=== PATIENT | male | born 1945 | race Caucasian/White ===

== ENCOUNTER → 2016-10-16 | Outpatient (CLI) | payer MEDICARE ==
[~2016-10-16] MED LIST: ASPI-621 PO; ATOR10TA9 PO; CARV6.252 PO; CLOP75TA PO; ISOS30TA8 PO; LOSA50TA2 PO; [UNRECOGNIZED DRUG - OTHER] EACHEYE
== END | disposition home or self-care (01) ==
LOC: CFH 14:50
PROVIDERS: ATTEND Internal Medicine Cardiovascular Disease
DX: I08.3 Combined rheumatic disorders of mitral, aortic and tricuspid valves (principal); I10 Essential (primary) hypertension; I42.0 Dilated cardiomyopathy
CPT/HCPCS: 93306

== ENCOUNTER 2017-02-06 11:56 | Inpatient (IN) | payer MEDICARE ==
[~2017-02-06] VITALS: Ht 180.3 cm; Wt 77.7 kg
[~2017-02-06 11:56] MED LIST changes: +ALBU18HF INH; +ATOR40TA78 PO; +CARV12.543 PO; +FURO20TA3 PO; +LATA2.5D3 EACHEYE; +SPIR25TA PO
[2017-02-06] MEDS ORDERED: SODIUM CHLORIDE FLUSH 10ML SYR IVF ONE (12:30)
[2017-02-06] MEDS ORDERED: TRIA1CAP PO (12:43)
[2017-02-06] MEDS ORDERED: NITROGLYCERIN SINGLE TAB 0.4 MG SL ONE (12:54)
[2017-02-06] MEDS ORDERED: SODIUM CHLORIDE 0.9% 1,000ML IVBOLUS ONE (13:00)
[2017-02-06] MEDS: NITROGLYCERIN SINGLE TAB 0.4 MG SL PRN ×2 (13:04→13:26)
[2017-02-06 13:05] LABS: HEMATOCRIT 49.5 % (39.2-51.8); HEMOGLOBIN 16.3 g/dL (13.7-18.0); WHITE BLOOD COUNT 7.9 x10^3/uL (3.4-10)
[2017-02-06 13:20] LABS: BLOOD UREA NITROGEN 13 mg/dL (7-18)
[2017-02-06 13:26] LABS: ASPARTATE AMINO TRANSFERASE 33 U/L (15-37)
[2017-02-06 13:28] LABS: IS PT STATUS REG ER OR PRE ER? YES
[2017-02-06] MEDS ORDERED: FUROSEMIDE 20 MG/2 ML IV ONE (13:30)
[2017-02-06] MEDS ORDERED: FUROSEMIDE 20 MG/2 ML ONE (13:37)
[2017-02-06] MEDS ORDERED: ENOXAPARIN 60 MG/0.6 ML SQ ONE (14:00)
[2017-02-06] MEDS ORDERED: morphine SULFATE 10 MG/ML, 1ML IVPush PRN (15:00)
[2017-02-06] MEDS ORDERED: LABETALOL 5MG/ML, 20ML IVPush PRN (15:00)
[2017-02-06] MEDS ORDERED: HYDROcodone/APAP 5/325 TABLET PO PRN (15:00)
[2017-02-06] MEDS ORDERED: GUAIFENESIN/DM 200-20MG, 10ML UDC PO PRN (15:00)
[2017-02-06] MEDS ORDERED: ONDANSETRON 2MG/ML, 2ML IVPush PRN (15:00)
[2017-02-06] MEDS ORDERED: ONDANSETRON ODT 4 MG PO PRN (15:00)
[2017-02-06 15:23] LABS: IS PT STATUS REG ER OR PRE ER? YES
[2017-02-06 20:20] VITALS: BP 159/99
[2017-02-06] MEDS ORDERED: GUAI118L3 PO (20:37)
[2017-02-06 21:25] LABS: IS PT STATUS REG ER OR PRE ER? NO
[2017-02-06] MEDS: CARVEDILOL 12.5 MG TABLET PO SCH (21:52)
[2017-02-06] MEDS: FUROSEMIDE 20 MG/2 ML IV SCH (21:53)
[2017-02-06] MEDS: ENOXAPARIN 40 MG/0.4 ML SQ SCH (21:53)
[2017-02-06] MEDS ORDERED: OMNIPAQUE 350 MG/ML, 100ML BOTTLE ONE (22:24)
[2017-02-06] MEDS: ATORVASTATIN 40 MG TABLET PO SCH (23:05)
[2017-02-06] MEDS: LATANOPROST OPHTH 0.005%, 2.5ML EACHEYE SCH (23:08)
[2017-02-07 00:56] VITALS: BP 125/73
[2017-02-07 06:23] LABS: HEMOGLOBIN 15.7 g/dL (13.7-18.0); WHITE BLOOD COUNT 8.5 x10^3/uL (3.4-10)
[2017-02-07] MEDS: ASPIRIN 81 MG TABLET EC PO SCH (06:35)
[2017-02-07 06:55] LABS: ASPARTATE AMINO TRANSFERASE 27 U/L (15-37); BLOOD UREA NITROGEN 20 mg/dL (7-18)
[2017-02-07 08:11] VITALS: BP 142/85
[2017-02-07] MEDS ORDERED: FUROSEMIDE 20 MG/2 ML IV SCH (09:00)
[2017-02-07] MEDS: CLOPIDOGREL 75 MG TABLET PO SCH (09:02)
[2017-02-07] MEDS: SENNA/DOCUSATE TABLET PO SCH (09:02)
[2017-02-07] MEDS: ISOSORBIDE MONONITRATE ER 30 MG TABLET PO SCH (09:02)
[2017-02-07] MEDS: LOSARTAN 50MG TABLET PO SCH (09:02)
[2017-02-07] MEDS: SPIRONOLACTONE 25 MG TABLET PO SCH (09:02)
[2017-02-07] MEDS: CARVEDILOL 12.5 MG TABLET PO SCH ×2 (09:03→20:02)
[2017-02-07] MEDS: FUROSEMIDE 20 MG/2 ML IV SCH ×2 (09:03→20:03)
[2017-02-07] MEDS ORDERED: REGADENOSON 0.4 MG/5 ML SYRINGE ONE (10:12)
[2017-02-07 11:31] LABS: IS PT STATUS REG ER OR PRE ER? NO
[2017-02-07 14:30] VITALS: BP 199/78
[2017-02-07 18:21] VITALS: BP 142/69
[2017-02-07 20:00] VITALS: BP 126/63
[2017-02-07] MEDS: ENOXAPARIN 40 MG/0.4 ML SQ SCH (20:02)
[2017-02-07] MEDS: ATORVASTATIN 40 MG TABLET PO SCH (20:02)
[2017-02-07] MEDS: LATANOPROST OPHTH 0.005%, 2.5ML EACHEYE SCH (20:03)
[2017-02-08 01:45] VITALS: BP 118/56
[2017-02-08 05:19] LABS: HEMATOCRIT 49.7 % (39.2-51.8); HEMOGLOBIN 16.2 g/dL (13.7-18.0); WHITE BLOOD COUNT 9.3 x10^3/uL (3.4-10)
[2017-02-08 05:29] LABS: BLOOD UREA NITROGEN 26 mg/dL (7-18)
[2017-02-08 05:32] LABS: ASPARTATE AMINO TRANSFERASE 19 U/L (15-37)
[2017-02-08] MEDS: ASPIRIN 81 MG TABLET EC PO SCH (06:01)
[2017-02-08 07:02] VITALS: BP 144/86
[2017-02-08] MEDS: LOSARTAN 50MG TABLET PO SCH (08:26)
[2017-02-08] MEDS: CLOPIDOGREL 75 MG TABLET PO SCH (08:26)
[2017-02-08] MEDS: ISOSORBIDE MONONITRATE ER 30 MG TABLET PO SCH (08:26)
[2017-02-08] MEDS: SPIRONOLACTONE 25 MG TABLET PO SCH (08:26)
[2017-02-08] MEDS: FUROSEMIDE 20 MG/2 ML IV SCH (08:27)
[2017-02-08] MEDS: SENNA/DOCUSATE TABLET PO SCH (08:27)
[2017-02-08] MEDS: CARVEDILOL 12.5 MG TABLET PO SCH (08:27)
== END 2017-02-08 11:55 | disposition home or self-care (01) | DRG 302 ==
LOC: ED 13:32 → INTOOBSV 13:34 → EDIP 13:34 → OBSVTOIN 13:34 → ED 13:53 → 5SO 20:20 → DCLOUNGE 02-08 11:46
PROVIDERS: ADMIT Hospitalist; ATTEND Hospitalist
DX: I25.110 Atherosclerotic heart disease of native coronary artery with unstable angina pectoris (principal); I50.43 Acute on chronic combined systolic (congestive) and diastolic (congestive) heart failure; I11.0 Hypertensive heart disease with heart failure; I35.0 Nonrheumatic aortic (valve) stenosis; I25.5 Ischemic cardiomyopathy; E78.5 Hyperlipidemia, unspecified; I25.2 Old myocardial infarction; Z79.82 Long term (current) use of aspirin; Z91.19 Patient's noncompliance with other medical treatment and regimen; Z95.5 Presence of coronary angioplasty implant and graft; Z72.89 Other problems related to lifestyle; Z98.49 Cataract extraction status, unspecified eye; Z79.02 Long term (current) use of antithrombotics/antiplatelets; Z79.899 Other long term (current) drug therapy
CPT/HCPCS: 36415; 71010; 71275; 78452; 80053; 80061; 83690; 83735; 83880; 84439; 84484; 85025; 85379; 85610; 93005; 93017; 93306; 96374; J1650; J2785; Q9967; A9502; C9898; J1940; J7030

== ENCOUNTER 2017-05-16 09:28 | Inpatient (IN) | payer MEDICARE ==
[~2017-05-16] VITALS: Ht 180.3 cm; Wt 72.7 kg
[~2017-05-16 09:28] MED LIST changes: +GUAI118L3 PO; +TRIA1CAP PO
[2017-05-16] MEDS ORDERED: FLUT12HF2 INH (10:54)
[2017-05-16] MEDS ORDERED: SODIUM CHLORIDE FLUSH 10ML SYR IVF ONE (11:30)
[2017-05-16 11:53] LABS: BASOPHILS # (AUTO) 0.03 x10^3/uL (0-0.1); BASOPHILS % (AUTO) 0 % (0-1); EOSINOPHILS # (AUTO) 0.13 x10^3/uL (0-0.4); EOSINOPHILS % (AUTO) 2 % (1-7); LYMPHOCYTES # (AUTO) 0.77 x10^3/uL (1-3.4); LYMPHOCYTES % (AUTO) 12 % (22-44); MD NO; MEAN CORPUSCULAR HEMOGLOBIN 28.9 pg (27.5-34.5); MEAN CORPUSCULAR HGB CONC 32.4 g/dL (33.2-36.2); MEAN CORPUSCULAR VOLUME 89.2 fL (81-97); MEAN PLATELET VOLUME 9.3 fL (7.4-10.4); MONOCYTES # (AUTO) 0.52 x10^3/uL (0.2-0.8); MONOCYTES % (AUTO) 8 % (2-9); NEUTROPHILS # (AUTO) 5.05 x10^3/uL (1.8-6.8); NEUTROPHILS % (AUTO) 78 % (42-75); PLATELET COUNT 163 x10^3/uL (130-400); RED BLOOD COUNT 5.88 x10^6/uL (4.38-5.82); RED CELL DISTRIBUTION WIDTH 15.8 % (9.4-14.8)
[2017-05-16 11:56] LABS: INTERNATIONAL NORMALIZED RATIO 1.11 (0.93-1.1); PROTHROMBIN TIME 11.4 Seconds (9.6-11.5)
[2017-05-16 12:01] LABS: ALANINE AMINOTRANSFERASE 19 U/L (12-78); ALBUMIN 3.3 g/dL (3.4-5.0); ANION GAP 8 mmol/L (5-15); CALCIUM 8.6 mg/dL (8.5-10.1); CHLORIDE 106 mmol/L (98-107)
[2017-05-16 12:06] LABS: ALKALINE PHOSPHATASE 93 U/L (45-117); CREATININE 1.09 mg/dL (0.7-1.3); TOTAL PROTEIN 7.3 g/dL (6.4-8.2); TROPONIN I 0.066 ng/mL (0.000-0.045)
[2017-05-16 12:18] LABS: BILIRUBIN,TOTAL 1.3 mg/dL (0.2-1.0)
[2017-05-16] MEDS ORDERED: SODIUM CHLORIDE FLUSH 10ML SYR IVF PRN (12:30)
[2017-05-16] MEDS ORDERED: NITROGLYCERIN 0.4 MG/SPRAY SL PRN (13:30)
[2017-05-16] MEDS ORDERED: morphine SULFATE 10 MG/ML, 1ML IV PRN (13:30)
[2017-05-16] MEDS ORDERED: ENOXAPARIN 40 MG/0.4 ML SQ SCH (13:30)
[2017-05-16] MEDS ORDERED: NITROGLYCERIN 0.4 MG BOTTLE (25 TABS) SL PRN (13:30)
[2017-05-16] MEDS ORDERED: ALBUTEROL HFA 90 MCG/SPRAY INH PRN ×2 (13:30→14:06)
[2017-05-16 13:49] LABS: THYROID STIMULATING HORMONE 1.99 mIU/L (0.358-3.740)
[2017-05-16 14:32] VITALS: BP 153/83
[2017-05-16] MEDS: FUROSEMIDE 20 MG/2 ML IV SCH ×2 (17:07→23:18)
[2017-05-16] MEDS: GUAIFENESIN 200 MG TABLET PO SCH ×2 (17:07→23:18)
[2017-05-16 20:06] VITALS: BP_SYST 132
[2017-05-16 21:32] LABS: TROPONIN I 0.082 ng/mL (0.000-0.045)
[2017-05-16] MEDS: AMOXICILLIN/CLAV 875-125MG TABLET PO SCH (23:17)
[2017-05-16] MEDS: ATORVASTATIN 40 MG TABLET PO SCH (23:18)
[2017-05-16] MEDS: FLUTICASONE/VILANTEROL 100-25MCG/INH INH SCH (23:18)
[2017-05-16] MEDS: CARVEDILOL 12.5 MG TABLET PO SCH (23:18)
[2017-05-16] MEDS: FLUTICASONE NASAL SPRAY 16GM NAS SCH (23:19)
[2017-05-16] MEDS: SODIUM CHLORIDE FLUSH 10ML SYR IVF SCH (23:19)
[2017-05-16] MEDS: SODIUM CHLORIDE NASAL SPRAY 45ML BOTTLE NAS SCH (23:19)
[2017-05-16] MEDS: LATANOPROST OPHTH 0.005%, 2.5ML EACHEYE SCH (23:19)
[2017-05-17 01:28] VITALS: BP 116/67
[2017-05-17 05:20] LABS: BASOPHILS # (AUTO) 0.04 x10^3/uL (0-0.1); BASOPHILS % (AUTO) 1 % (0-1); EOSINOPHILS # (AUTO) 0.19 x10^3/uL (0-0.4); EOSINOPHILS % (AUTO) 3 % (1-7); LYMPHOCYTES # (AUTO) 1.18 x10^3/uL (1-3.4); LYMPHOCYTES % (AUTO) 15 % (22-44); MD NO; MEAN CORPUSCULAR HGB CONC 32.2 g/dL (33.2-36.2); MEAN CORPUSCULAR VOLUME 90.2 fL (81-97); MEAN PLATELET VOLUME 9.1 fL (7.4-10.4); MONOCYTES # (AUTO) 0.88 x10^3/uL (0.2-0.8); MONOCYTES % (AUTO) 11 % (2-9); NEUTROPHILS # (AUTO) 5.39 x10^3/uL (1.8-6.8); NEUTROPHILS % (AUTO) 70 % (42-75); PLATELET COUNT 150 x10^3/uL (130-400); RED BLOOD COUNT 5.83 x10^6/uL (4.38-5.82); RED CELL DISTRIBUTION WIDTH 15.9 % (9.4-14.8)
[2017-05-17 05:33] LABS: ANION GAP 6 mmol/L (5-15); CALCIUM 8.9 mg/dL (8.5-10.1); CHLORIDE 106 mmol/L (98-107)
[2017-05-17 05:37] LABS: CREATININE 1.22 mg/dL (0.7-1.3); TROPONIN I 0.125 ng/mL (0.000-0.045)
[2017-05-17 05:38] LABS: CHOL/HDL RATIO 3.5; CHOLESTEROL, TOTAL 153 mg/dL (140-239); HDL CHOL % 29 % (26-37); HDL CHOLESTEROL (DIRECT) 44 mg/dL (40-60); LDL CHOLESTEROL,CALCULATED 88 mg/dL (54-169); TRIGLYCERIDES 104 mg/dL (50-200); VLDL CHOLESTEROL 21 mg/dL (0-25)
[2017-05-17] MEDS: ASPIRIN 325 MG TABLET EC PO SCH (06:19)
[2017-05-17] MEDS: GUAIFENESIN 200 MG TABLET PO SCH ×4 (06:19→21:18)
[2017-05-17] MEDS ORDERED: ONDANSETRON 2MG/ML, 2ML ONE (08:55)
[2017-05-17] MEDS: FLUTICASONE/VILANTEROL 100-25MCG/INH INH SCH (08:57)
[2017-05-17] MEDS: FLUTICASONE NASAL SPRAY 16GM NAS SCH ×2 (08:57→21:19)
[2017-05-17] MEDS: FUROSEMIDE 20 MG/2 ML IV SCH ×2 (08:57→16:54)
[2017-05-17] MEDS: ISOSORBIDE MONONITRATE ER 30 MG TABLET PO SCH (08:58)
[2017-05-17] MEDS: SODIUM CHLORIDE NASAL SPRAY 45ML BOTTLE NAS SCH ×2 (08:58→21:19)
[2017-05-17] MEDS: SPIRONOLACTONE 25 MG TABLET PO SCH (08:58)
[2017-05-17] MEDS: AMOXICILLIN/CLAV 875-125MG TABLET PO SCH ×2 (08:58→21:18)
[2017-05-17] MEDS: SODIUM CHLORIDE FLUSH 10ML SYR IVF SCH ×2 (08:58→21:23)
[2017-05-17] MEDS: CARVEDILOL 12.5 MG TABLET PO SCH ×2 (08:58→21:19)
[2017-05-17] MEDS: CLOPIDOGREL 75 MG TABLET PO SCH (08:58)
[2017-05-17] MEDS ORDERED: ONDANSETRON 2MG/ML, 2ML IVPush ONE (09:00)
[2017-05-17 09:34] VITALS: BP 138/79
[2017-05-17 14:49] LABS: INTERNATIONAL NORMALIZED RATIO 1.13 (0.93-1.1); PROTHROMBIN TIME 11.6 Seconds (9.6-11.5)
[2017-05-17 16:13] VITALS: BP 101/58
[2017-05-17] MEDS ORDERED: WARFARIN 5 MG TABLET PO-COUM ONE ×2 (16:49→18:00)
[2017-05-17 18:39] VITALS: BP 114/69
[2017-05-17] MEDS: ATORVASTATIN 40 MG TABLET PO SCH (21:18)
[2017-05-17] MEDS: LATANOPROST OPHTH 0.005%, 2.5ML EACHEYE SCH (21:19)
[2017-05-17 21:20] VITALS: BP 107/65
[2017-05-17] MEDS ORDERED: ALBUTEROL SULFATE 2.5 MG/3 ML NPPB PRN (22:00)
[2017-05-18 01:25] VITALS: BP 118/70
[2017-05-18 05:29] LABS: INTERNATIONAL NORMALIZED RATIO 1.12 (0.93-1.1); PROTHROMBIN TIME 11.5 Seconds (9.6-11.5)
[2017-05-18 05:31] LABS: BASOPHILS # (AUTO) 0.03 x10^3/uL (0-0.1); BASOPHILS % (AUTO) 0 % (0-1); EOSINOPHILS # (AUTO) 0.34 x10^3/uL (0-0.4); EOSINOPHILS % (AUTO) 4 % (1-7); LYMPHOCYTES % (AUTO) 11 % (22-44); MD NO; MEAN CORPUSCULAR HEMOGLOBIN 29.5 pg (27.5-34.5); MEAN CORPUSCULAR HGB CONC 32.7 g/dL (33.2-36.2); MEAN CORPUSCULAR VOLUME 90.2 fL (81-97); MEAN PLATELET VOLUME 9.6 fL (7.4-10.4); MONOCYTES % (AUTO) 11 % (2-9); NEUTROPHILS # (AUTO) 6.84 x10^3/uL (1.8-6.8); NEUTROPHILS % (AUTO) 74 % (42-75); PLATELET COUNT 151 x10^3/uL (130-400); RED BLOOD COUNT 5.41 x10^6/uL (4.38-5.82); RED CELL DISTRIBUTION WIDTH 15.7 % (9.4-14.8)
[2017-05-18 05:43] LABS: ANION GAP 8 mmol/L (5-15); CHLORIDE 102 mmol/L (98-107)
[2017-05-18 05:46] LABS: CALCIUM 8.4 mg/dL (8.5-10.1); CREATININE 1.55 mg/dL (0.7-1.3)
[2017-05-18] MEDS: GUAIFENESIN 200 MG TABLET PO SCH ×4 (06:27→19:58)
[2017-05-18] MEDS: ASPIRIN 325 MG TABLET EC PO SCH (06:30)
[2017-05-18 06:35] VITALS: BP 125/74
[2017-05-18] MEDS: SODIUM CHLORIDE NASAL SPRAY 45ML BOTTLE NAS SCH ×2 (08:46→19:59)
[2017-05-18] MEDS: FLUTICASONE NASAL SPRAY 16GM NAS SCH ×2 (08:46→19:59)
[2017-05-18] MEDS: AMOXICILLIN/CLAV 875-125MG TABLET PO SCH ×2 (08:47→19:59)
[2017-05-18] MEDS: SODIUM CHLORIDE FLUSH 10ML SYR IVF SCH ×2 (08:47→19:59)
[2017-05-18] MEDS: FLUTICASONE/VILANTEROL 100-25MCG/INH INH SCH (08:47)
[2017-05-18] MEDS: ISOSORBIDE MONONITRATE ER 30 MG TABLET PO SCH (08:47)
[2017-05-18] MEDS: FUROSEMIDE 20 MG/2 ML IV SCH (08:47)
[2017-05-18] MEDS: SPIRONOLACTONE 25 MG TABLET PO SCH (08:47)
[2017-05-18] MEDS: CARVEDILOL 12.5 MG TABLET PO SCH ×2 (08:47→19:58)
[2017-05-18] MEDS: CLOPIDOGREL 75 MG TABLET PO SCH (08:47)
[2017-05-18 11:25] VITALS: BP 108/67
[2017-05-18] MEDS ORDERED: WARFARIN 5 MG TABLET PO-COUM SCH (18:00)
[2017-05-18 19:26] VITALS: BP 122/79
[2017-05-18] MEDS: LATANOPROST OPHTH 0.005%, 2.5ML EACHEYE SCH (19:58)
[2017-05-18] MEDS: ATORVASTATIN 40 MG TABLET PO SCH (19:59)
[2017-05-19 02:37] VITALS: BP 136/78
[2017-05-19 04:52] LABS: INTERNATIONAL NORMALIZED RATIO 1.17 (0.93-1.1)
[2017-05-19] MEDS: GUAIFENESIN 200 MG TABLET PO SCH ×4 (05:59→20:21)
[2017-05-19] MEDS: ASPIRIN 325 MG TABLET EC PO SCH (06:03)
[2017-05-19 08:20] VITALS: BP 146/80
[2017-05-19] MEDS: SODIUM CHLORIDE FLUSH 10ML SYR IVF SCH ×2 (08:21→20:28)
[2017-05-19] MEDS: FLUTICASONE/VILANTEROL 100-25MCG/INH INH SCH (08:21)
[2017-05-19] MEDS: FLUTICASONE NASAL SPRAY 16GM NAS SCH ×2 (08:22→20:20)
[2017-05-19] MEDS: SODIUM CHLORIDE NASAL SPRAY 45ML BOTTLE NAS SCH ×2 (08:23→20:20)
[2017-05-19] MEDS: CARVEDILOL 12.5 MG TABLET PO SCH ×2 (08:23→20:21)
[2017-05-19] MEDS: ISOSORBIDE MONONITRATE ER 30 MG TABLET PO SCH (08:23)
[2017-05-19] MEDS: SPIRONOLACTONE 25 MG TABLET PO SCH (08:23)
[2017-05-19] MEDS: AMOXICILLIN/CLAV 875-125MG TABLET PO SCH ×2 (08:24→20:21)
[2017-05-19] MEDS: CLOPIDOGREL 75 MG TABLET PO SCH (08:24)
[2017-05-19] MEDS ORDERED: FUROSEMIDE 20 MG TABLET PO SCH (09:00)
[2017-05-19] MEDS ORDERED: AMOX1TAB12 PO (11:53)
[2017-05-19] MEDS ORDERED: WARF5TAB PO (11:53)
[2017-05-19 12:48] VITALS: BP 111/57
[2017-05-19] MEDS ORDERED: WARFARIN 7.5 MG TABLET PO-COUM ONE (18:00)
[2017-05-19] MEDS: ATORVASTATIN 40 MG TABLET PO SCH (20:20)
[2017-05-19] MEDS: LATANOPROST OPHTH 0.005%, 2.5ML EACHEYE SCH (20:20)
[2017-05-19 21:21] VITALS: BP 158/81
== END 2017-05-20 00:08 | disposition home or self-care (01) | DRG 292 ==
LOC: ED 12:22 → EDIP 12:27 → ED 12:35 → 5SO 14:00
PROVIDERS: ADMIT Internal Medicine; ATTEND Family Medicine
DX: I11.0 Hypertensive heart disease with heart failure (principal); I31.3 Pericardial effusion (noninflammatory); I42.9 Cardiomyopathy, unspecified; E44.1 Mild protein-calorie malnutrition; J20.9 Acute bronchitis, unspecified; I50.43 Acute on chronic combined systolic (congestive) and diastolic (congestive) heart failure; Z86.79 Personal history of other diseases of the circulatory system; G89.29 Other chronic pain; E78.5 Hyperlipidemia, unspecified; I08.0 Rheumatic disorders of both mitral and aortic valves; I25.2 Old myocardial infarction; Z95.5 Presence of coronary angioplasty implant and graft; Z91.19 Patient's noncompliance with other medical treatment and regimen; Z79.01 Long term (current) use of anticoagulants; Z68.22 Body mass index [BMI] 22.0-22.9, adult; I25.110 Atherosclerotic heart disease of native coronary artery with unstable angina pectoris
CPT/HCPCS: 36415; 71010; 80048; 80053; 80061; 83735; 83880; 84443; 84484; 85025; 85610; 85730; 93005; 99285; C8929; J1650; J2405; J1940; J2270

== ENCOUNTER 2018-04-21 09:40 | Inpatient (IN) | payer MEDICARE ==
[2018-04-18 14:43] LABS: BASOPHILS # (AUTO) 0.02 x10^3/uL (0-0.1); BASOPHILS % (AUTO) 0 % (0-1); EOSINOPHILS # (AUTO) 0.44 x10^3/uL (0-0.4); EOSINOPHILS % (AUTO) 6 % (1-7); LYMPHOCYTES # (AUTO) 0.93 x10^3/uL (1-3.4); LYMPHOCYTES % (AUTO) 13 % (22-44); MD NO; MEAN CORPUSCULAR HEMOGLOBIN 28.9 pg (27.5-34.5); MEAN CORPUSCULAR HGB CONC 32.4 g/dL (33.2-36.2); MEAN CORPUSCULAR VOLUME 89.2 fL (81-97); MEAN PLATELET VOLUME 9.3 fL (7.4-10.4); MONOCYTES # (AUTO) 0.86 x10^3/uL (0.2-0.8); MONOCYTES % (AUTO) 12 % (2-9); NEUTROPHILS # (AUTO) 4.91 x10^3/uL (1.8-6.8); NEUTROPHILS % (AUTO) 69 % (42-75); PLATELET COUNT 175 x10^3/uL (130-400); RED BLOOD COUNT 5.89 x10^6/uL (4.38-5.82); RED CELL DISTRIBUTION WIDTH 15.2 % (9.4-14.8)
[2018-04-18 14:55] LABS: ALBUMIN 3.7 g/dL (3.4-5.0); ANION GAP 6 mmol/L (5-15); CALCIUM 8.7 mg/dL (8.5-10.1); CHLORIDE 106 mmol/L (98-107)
[2018-04-18 14:59] LABS: ALANINE AMINOTRANSFERASE 29 U/L (12-78); ALKALINE PHOSPHATASE 112 U/L (45-117); BILIRUBIN,TOTAL 1.2 mg/dL (0.2-1.0); CREATININE 0.96 mg/dL (0.7-1.3)
[~2018-04-21] VITALS: Ht 180.3 cm; Wt 75.1 kg
[~2018-04-21 09:40] MED LIST changes: +ALBU8.5H8 INH; +AMOX1TAB12 PO; +APIX5TAB PO; -ASPI-621 PO; +ASPI81TA45 PO; +CALC-534 PO; +CARV12.52 PO; +FLUT12HF2 INH; +FURO40TA6 PO; +LOSA25TA2 PO; +MAGN64TA7 PO; +METF500T17 PO; +POTA20TA6 PO; +POTA20TA91 PO; +WARF5TAB PO
[2018-04-21] MEDS ORDERED: SODIUM CHLORIDE 0.9% 1,000 ML IV SCH (09:50)
[2018-04-21] MEDS ORDERED: MIDAZOLAM 1 MG/ML, 2ML ONE (12:31)
[2018-04-21] MEDS ORDERED: CEFAZOLIN PMX 1GM/50ML 50 ML ONE (12:31)
[2018-04-21] MEDS ORDERED: LIDOCAINE/PF 1%, 30ML ONE (12:31)
[2018-04-21] MEDS ORDERED: CEFAZOLIN 1,000 MG ONE (12:31)
[2018-04-21] MEDS ORDERED: FENTANYL PF 100 MCG/2ML ONE ×2 (12:31→13:29)
[2018-04-21] MEDS ORDERED: ZOLPIDEM 5MG TABLET PO PRN (14:00)
[2018-04-21] MEDS ORDERED: HOLD MEDICATION MC PRN (14:00)
[2018-04-21] MEDS ORDERED: ACETAMINOPHEN 325 MG TABLET PO PRN (14:00)
[2018-04-21] MEDS ORDERED: ALBUTEROL SULFATE 2.5 MG/3 ML NPPB PRN ×2 (14:30→17:00)
[2018-04-21 17:13] VITALS: BP 132/70
[2018-04-21] MEDS: CARVEDILOL 12.5 MG TABLET PO SCH (17:20)
[2018-04-21 19:51] VITALS: BP 118/62
[2018-04-21] MEDS: metFORMIN 500 MG TABLET PO SCH (20:05)
[2018-04-21] MEDS: SODIUM CHLORIDE FLUSH 10ML SYR IVF SCH (20:06)
[2018-04-21] MEDS: CEFAZOLIN PMX 1GM/50ML 50 ML IVPB SCH (20:27)
[2018-04-21] MEDS ORDERED: ATORVASTATIN 40 MG TABLET PO SCH (21:00)
[2018-04-22] VITALS: BP 144/80
[2018-04-22] MEDS: CEFAZOLIN PMX 1GM/50ML 50 ML IVPB SCH (04:18)
[2018-04-22 05:10] VITALS: BP 142/85
[2018-04-22] MEDS: CARVEDILOL 12.5 MG TABLET PO SCH (05:10)
[2018-04-22 06:42] VITALS: BP 143/82
[2018-04-22] MEDS ORDERED: ACET325T14 PO (08:28)
[2018-04-22] MEDS: metFORMIN 500 MG TABLET PO SCH (08:34)
[2018-04-22] MEDS: SODIUM CHLORIDE FLUSH 10ML SYR IVF SCH (08:35)
[2018-04-22] MEDS ORDERED: ISOSORBIDE MONONITRATE ER 30 MG TABLET PO SCH (09:00)
[2018-04-22] MEDS ORDERED: CALCIUM/VITAMIN D3 250-125 TABLET PO SCH (09:00)
[2018-04-22] MEDS ORDERED: SPIRONOLACTONE 25 MG TABLET PO SCH (09:00)
[2018-04-22] MEDS ORDERED: ASPIRIN 81 MG TABLET EC PO SCH (09:00)
[2018-04-22] MEDS ORDERED: POTASSIUM CHLORIDE 20 MEQ TAB.ER.PRT PO SCH (09:00)
== END 2018-04-22 10:38 | disposition home or self-care (01) | DRG 226 ==
LOC: CACL 09:40 → ORIP 13:38 → 5SO 14:06 → DCLOUNGE 04-22 10:18
PROVIDERS: ADMIT Internal Medicine Cardiovascular Disease; ATTEND Internal Medicine Cardiovascular Disease
PROC: 0JH608Z Insertion of Defibrillator Generator into Chest Subcutaneous Tissue and Fascia, Open Approach (ICD-10-PCS; principal; 2018-04-21)
PROC: 02HK3KZ Insertion of Defibrillator Lead into Right Ventricle, Percutaneous Approach (ICD-10-PCS; 2018-04-21)
PROC: 02H63KZ Insertion of Defibrillator Lead into Right Atrium, Percutaneous Approach (ICD-10-PCS; 2018-04-21)
DX: I25.5 Ischemic cardiomyopathy (principal); I21.4 Non-ST elevation (NSTEMI) myocardial infarction; I50.9 Heart failure, unspecified; I11.0 Hypertensive heart disease with heart failure; I10 Essential (primary) hypertension
CPT/HCPCS: 36415; 71045; 71046; 80053; 85025; G0378; J0690; J2250; J3010; J3490

== ENCOUNTER 2018-04-25 09:11 | Emergency (ER) | payer MEDICARE ==
[~2018-04-25] VITALS: Ht 180.3 cm; Wt 72.7 kg
[~2018-04-25 09:11] MED LIST changes: +ACET325T14 PO
[2018-04-25 10:42] LABS: ANION GAP 7 mmol/L (5-15); CALCIUM 8.3 mg/dL (8.5-10.1); CHLORIDE 109 mmol/L (98-107)
[2018-04-25 10:46] LABS: BASOPHILS # (AUTO) 0.03 x10^3/uL (0-0.1); BASOPHILS % (AUTO) 0 % (0-1); EOSINOPHILS # (AUTO) 0.42 x10^3/uL (0-0.4); EOSINOPHILS % (AUTO) 6 % (1-7); INTERNATIONAL NORMALIZED RATIO 1.09 (0.93-1.1); LYMPHOCYTES # (AUTO) 0.62 x10^3/uL (1-3.4); LYMPHOCYTES % (AUTO) 9 % (22-44); MD NO; MEAN CORPUSCULAR HEMOGLOBIN 29.5 pg (27.5-34.5); MEAN CORPUSCULAR HGB CONC 33.2 g/dL (33.2-36.2); MEAN CORPUSCULAR VOLUME 88.9 fL (81-97); MEAN PLATELET VOLUME 9.3 fL (7.4-10.4); MONOCYTES # (AUTO) 0.66 x10^3/uL (0.2-0.8); MONOCYTES % (AUTO) 9 % (2-9); NEUTROPHILS # (AUTO) 5.31 x10^3/uL (1.8-6.8); NEUTROPHILS % (AUTO) 75 % (42-75); PLATELET COUNT 157 x10^3/uL (130-400); PROTHROMBIN TIME 11.5 Seconds (9.6-11.5)
[2018-04-25 12:32] VITALS: BP 133/75
== END 2018-04-25 12:42 | disposition home or self-care (01) ==
LOC: ED 11:28
DX: I97.190 Other postprocedural cardiac functional disturbances following cardiac surgery (principal); E78.5 Hyperlipidemia, unspecified; I25.2 Old myocardial infarction; I11.0 Hypertensive heart disease with heart failure; I50.9 Heart failure, unspecified; I25.10 Atherosclerotic heart disease of native coronary artery without angina pectoris
CPT/HCPCS: 36415; 80048; 82040; 85025; 85610; 85730; 99283

== ENCOUNTER → 2018-10-31 | Outpatient (CLI) | payer MEDICARE | END | disposition home or self-care (01) | LOC: CFH 08:38 | PROVIDERS: ATTEND Physician Assistant | DX: I08.8 Other rheumatic multiple valve diseases (principal); I10 Essential (primary) hypertension; E78.5 Hyperlipidemia, unspecified | CPT/HCPCS: 93306 ==

== ENCOUNTER 2018-12-24 10:56 | Inpatient (IN) | payer MEDICARE ==
[~2018-12-24] VITALS: Ht 182.9 cm; Wt 63.1 kg
[2018-12-28 07:20] VITALS: BP 111/71
== END 2018-12-28 15:29 | DRG 281 ==
LOC: ED 11:55 → EDIP 12:17 → 5SO 14:26
PROVIDERS: ADMIT Internal Medicine; ATTEND Internal Medicine
DX: I21.A1 Myocardial infarction type 2 (principal); I50.42 Chronic combined systolic (congestive) and diastolic (congestive) heart failure; E46 Unspecified protein-calorie malnutrition; Z68.1 Body mass index [BMI] 19.9 or less, adult; R07.89 Other chest pain; I25.5 Ischemic cardiomyopathy; D69.6 Thrombocytopenia, unspecified; E78.5 Hyperlipidemia, unspecified; H40.9 Unspecified glaucoma; I08.3 Combined rheumatic disorders of mitral, aortic and tricuspid valves; I11.0 Hypertensive heart disease with heart failure; I25.10 Atherosclerotic heart disease of native coronary artery without angina pectoris; Z79.01 Long term (current) use of anticoagulants; Z86.73 Personal history of transient ischemic attack (TIA), and cerebral infarction without residual deficits; Z87.891 Personal history of nicotine dependence; Z91.14 Patient's other noncompliance with medication regimen; Z95.5 Presence of coronary angioplasty implant and graft; Z95.810 Presence of automatic (implantable) cardiac defibrillator; I51.3 Intracardiac thrombosis, not elsewhere classified
CPT/HCPCS: 36415; 70450; 71045; 78452; 80048; 80053; 80061; 80307; 81001; 82140; 83036; 84145; 84443; 84484; 85025; 85520; 85610; 85730; 93005; 93017; 93306; 96372; 99285; G0378; J1644; J1650; J2785; J3480; 92522-GN; A9502; C9898; G0515-GN

== ENCOUNTER 2019-06-17 11:17 | Emergency (ER) | payer MEDICARE ==
[~2019-06-17] VITALS: Ht 180.3 cm; Wt 70.7 kg
[~2019-06-17 11:17] MED LIST changes: +ACET325T26 PO; +ENOX60DI3 SQ; +MULT9LIQ10 PO; +SACU1TAB PO; +THIA100T67 PO; +TIMO5DRO5 EACHEYE; +WARF-36 PO-COUM
[2019-06-17] MEDS ORDERED: UBID100C41 PO (12:09)
[2019-06-17 12:25] LABS: BASOPHILS # (AUTO) 0.01 x10^3/uL (0-0.1); BASOPHILS % (AUTO) 0 % (0-1); EOSINOPHILS # (AUTO) 0.65 x10^3/uL (0-0.4); EOSINOPHILS % (AUTO) 10 % (1-7); LYMPHOCYTES # (AUTO) 0.91 x10^3/uL (1-3.4); LYMPHOCYTES % (AUTO) 14 % (22-44); MD NO; MEAN CORPUSCULAR HGB CONC 33.6 g/dL (33.2-36.2); MEAN CORPUSCULAR VOLUME 92.2 fL (81-97); MEAN PLATELET VOLUME 8.5 fL (7.4-10.4); MONOCYTES # (AUTO) 0.68 x10^3/uL (0.2-0.8); MONOCYTES % (AUTO) 11 % (2-9); NEUTROPHILS % (AUTO) 65 % (42-75); PLATELET COUNT 157 x10^3/uL (130-400); RED CELL DISTRIBUTION WIDTH 20.4 % (9.4-14.8)
[2019-06-17 12:36] LABS: INTERNATIONAL NORMALIZED RATIO 1.1 (0.93-1.1); PROTHROMBIN TIME 11.7 Seconds (9.6-11.5)
[2019-06-17 12:37] LABS: ALANINE AMINOTRANSFERASE 35 U/L (12-78); ALBUMIN 3.4 g/dL (3.4-5.0); ANION GAP 3 mmol/L (5-15); CALCIUM 8.8 mg/dL (8.5-10.1); CHLORIDE 109 mmol/L (98-107); CREATININE 1.11 mg/dL (0.7-1.3)
[2019-06-17 12:40] LABS: ALKALINE PHOSPHATASE 69 U/L (45-117); BILIRUBIN,TOTAL 0.5 mg/dL (0.2-1.0); TOTAL PROTEIN 7.1 g/dL (6.4-8.2); TROPONIN I 0.062 ng/mL (0.000-0.045)
--- NOTE | 2019-06-17 12:59 | NUR ---
BREAK NOTE RN: PT. WAS TAKEN TO CT SCAN.
--- NOTE | 2019-06-17 13:09 | NUR ---
PT. RETURNS FROM CT SCAN. PT. WAS PLACED ON THE CP MONITOR. VSS. IV ACCESS ESTABLISHED. PT. REMAINS A & O X 4 WITH A GCS OF 15. PT. DENIES C/O WEAKNESS, DIZZINESS OR PAIN. NO LATERAL DEFICITS, ATAXIA OR PARESTHIA WAS FOUND. REPORT TO OSIEL HERRING. SIDERAILS REMAIN UP X 2 WITH THE CALL LIGHT IN PLACE. PT. STATES HE IS WARM.
--- NOTE | 2019-06-17 13:13 | NUR ---
RECEIVED REPORT FROM GUEVARA HERRING AND ASSUMED CARE.
[2019-06-17] MEDS ORDERED: SODIUM CHLORIDE FLUSH 10ML SYR IVF ONE (13:30)
[2019-06-17 14:33] LABS: MICROSCOPIC INDICATED
[2019-06-17 14:52] VITALS: BP 138/72
[2019-06-17 14:52] LABS: CULTURE INDICATED? NO
--- NOTE | 2019-06-17 14:53 | NUR ---
AMBULATED TO DISCHARGE WINDOW STEADY GAIT
== END 2019-06-17 14:54 | disposition home or self-care (01) ==
LOC: ED 13:52
DX: R53.1 Weakness (principal); R61 Generalized hyperhidrosis; G31.89 Other specified degenerative diseases of nervous system; D17.0 Benign lipomatous neoplasm of skin and subcutaneous tissue of head, face and neck; R53.83 Other fatigue; I11.0 Hypertensive heart disease with heart failure; I25.10 Atherosclerotic heart disease of native coronary artery without angina pectoris; I25.2 Old myocardial infarction; E78.5 Hyperlipidemia, unspecified; Z98.61 Coronary angioplasty status; Z95.0 Presence of cardiac pacemaker; Z86.73 Personal history of transient ischemic attack (TIA), and cerebral infarction without residual deficits
CPT/HCPCS: 36415; 70450; 71045; 80053; 81001; 84484; 85025; 85610; 85730; 93005; 99284